=== PATIENT | female | born 1970 | race Caucasian/White ===

== ENCOUNTER 2022-03-31 10:15 | Emergency (ER) | payer SELFPAY ==
[2022-03-31] VITALS (10 sets, daily range): BP systolic 138–228; BP diastolic 93–139; PULSE 71–100; RESP 16–17; TEMP 37.1; O2SAT 96–961; BMI 30.7
--- NOTE | 2022-03-31 10:36 | EX.ED.DYSGE1 ---
HPI History of Present Illness Chief Complaint: Hypertension Informant: patient Onset/Context/Timing Onset: Yesterday Context: Gradual Onset Timing: Continuous Quality: Tingling Location: Left hand Worsened by: Nothing Relieved by: Nothing Narrative Narrative: Presents with elevated blood pressure that was found today. Patient went to urgent care to see about some numbness and tingling in her left hand that occurred yesterday. Patient states she had some tingling in her third fourth and fifth fingers of her left hand. Patient states that when she went to see the urgent care they told her that her blood pressure was too high and they would not be able to see her. Patient also admits to some visual changes where she saw some floaters in her vision yesterday. Patient states she thought this was a migraine starting. Patient admits to a mild headache but is not nearly as severe as her normal migraine headaches. Patient denies any chest pain or shortness of breath. Patient denies any other symptoms. Patient does not have a primary care physician. PFSH PFS Medical History no medical history no medical history Home Medications amlodipine 5 mg PO DAILY #30 tab 03/31/22 [Rx Last Taken Unknown] Allergy/AdvReac Type Severity Reaction Status Date / Time No Known Allergies Allergy Verified 03/31/22 10:17 Surgical History Hx of appendectomy Social History Smoking Status: Never smoker ROS ROS ED Constitutional Constitutional ED: Denies chills or fever(s) Eyes Eyes: Reports change in vision; Denies blurry vision or diplopia ENT ENT ED: Denies rhinorrhea or sore throat Cardiovascular Cardiovascular: Denies chest pain or palpitations Respiratory/Chest Respiratory/Chest: Denies cough or dyspnea Gastrointestinal Gastrointestinal: Denies nausea or vomiting Genitourinary Genitourinary ED: Denies dysuria or hematuria Musculoskeletal Musculoskeletal: Denies back pain or neck pain Integumentary Denies abscess or rash Neurologic Neurologic: Reports headache(s) and paresthesias LUE (Third, fourth, and fifth digits); Denies weakness Allergic/Immunologic Allergic/Immunologic ED: Denies mouth swelling or urticaria EXAM Physical Exam Const Vital Signs: 03/31/22 10:17 03/31/22 11:19 03/31/22 11:30 Temperature 98.8 F Temperature Source Temporal Pulse Rate 100 82 Respiratory Rate 17 16 Respiratory Effort Normal Respiratory Pattern Normal Blood Pressure 228/139 H 206/107 H 138/104 H Blood Pressure Mean 168 140 115 Pulse Ox 96 961 Oxygen Delivery Method Room Air Room Air 03/31/22 12:17 03/31/22 12:42 03/31/22 12:59 Temperature Temperature Source Pulse Rate 72 79 74 Respiratory Rate 16 16 16 Respiratory Effort Respiratory Pattern Blood Pressure 220/129 H 207/120 H 206/94 H Blood Pressure Mean 159 149 131 Pulse Ox 96 96 97 Oxygen Delivery Method Room Air Room Air 03/31/22 13:34 03/31/22 14:37 03/31/22 15:00 Temperature Temperature Source Pulse Rate 72 74 71 Respiratory Rate 16 16 Respiratory Effort Respiratory Pattern Blood Pressure 201/110 H 209/104 H 188/93 H Blood Pressure Mean 140 139 124 Pulse Ox 96 96 Oxygen Delivery Method Room Air Room Air 03/31/22 15:36 Temperature Temperature Source Pulse Rate 77 Respiratory Rate 16 Respiratory Effort Respiratory Pattern Blood Pressure 179/99 H Blood Pressure Mean 125 Pulse Ox 96 Oxygen Delivery Method Room Air Positive well nourished and well developed General Appearance ED: well developed HEENT Reports moist mucous membranes Neck supple and no JVD Resp normal respiratory effort and clear to auscultation bilaterally Cardio regular rate and regular rhythm Heart Sounds: murmur systolic II/ soft GI normal to inspection, nondistended, normoactive bowel sounds and non-tender Palpation: soft Extremity normal to inspection General Extremety ED: Negative for edema or tenderness General Extremity: Negative for edema Neuro oriented x3, CN's II-XII intact bilaterally and no sensory deficits noted Sensorium / Orientation: alert Motor Exam: strength 5/5 throughout Psych mental status grossly normal Skin no rashes or lesions noted MDM MDM MDM Narrative Medical decision making narrative: Patient was given a dose of labetalol here. EKG was obtained. On my interpretation, it showed a normal sinus rhythm with a rate of 91. NM and QRS intervals were within normal limits. QTc interval was slightly prolonged at 482 ms. Rule was normal. There are no acute ST or T wave changes. This lady CBC was within normal limits. Comprehensive metabolic profile was within normal limits. High-sensitivity troponin was normal. Urinalysis does not show any evidence of urinary tract infection or hematuria. Patient's blood pressure initially started to go down and then went back up again. Patient was given a repeat dose of labetalol. Patient's blood pressure did not improve after this. Patient was given a dose of hydralazine. Patient's blood pressure improved to 179/99 after this. Patient remained asymptomatic throughout her emergency department stay. Patient was given a prescription for amlodipine. Patient was instructed to follow-up with a primary care physician for further evaluation in 5 to 7 days. Patient was given a referral from the primary care physician project/production manager imaging list. Patient understood and was agreeable with the plan. All questions were answered. Lab Data Attestation: I reviewed the patient's lab results. Labs: Laboratory Results - last 24 hr 03/31/22 03/31/22 03/31/22 11:15 11:15 11:50 WBC 8.6 RBC 4.60 Hgb 14.5 Hct 43.5 MCV 94.6 MCH 31.5 MCHC 33.3 RDW Std Deviation 45.8 H RDW Coeff of Monet 13.1 Plt Count 297 MPV 10.0 Immature Gran % (Auto) 0.300 Neut % (Auto) 69.8 Lymph % (Auto) 23.4 Carter % (Auto) 4.4 Eos % (Auto) 1.6 Baso % (Auto) 0.5 Absolute Neuts (auto) 6.0 Absolute Lymphs (auto) 2.02 Nucleated RBC % 0 Sodium 142 Potassium 3.5 Chloride 108 H Carbon Dioxide 24.0 Anion Gap 10 BUN 10 Creatinine 0.87 Estim Creat Clear Calc 73.56 Est GFR (MDRD) Af Amer 87 Est GFR (MDRD) Non-Af 72 BUN/Creatinine Ratio 11.5 Glucose 96 Calcium 9.4 Total Bilirubin 0.70 AST 18 ALT 21 Alkaline Phosphatase 76 Troponin I High Sens 8 Total Protein 8.1 Albumin 4.2 Globulin 3.9 Albumin/Globulin Ratio 1.1 Urine Color Yellow Urine Clarity Sl. Cloudy Urine pH 6.0 Ur Specific Breeding 1.020 Urine Protein 15 H Urine Glucose (UA) Normal Urine Ketones Negative Urine Occult Blood 25 H Urine Nitrite Negative Urine Bilirubin Negative Urine Urobilinogen Normal Ur Leukocyte Esterase Negative Urine RBC 0 SEEN Urine WBC 0 SEEN Ur Squamous Epith Cells 0-5 SEEN Urine Bacteria 0 SEEN Urine Mucus 0 SEEN Radiography Chest X-Ray - ED: 1 View, Read by ED Physician, Read by Radiologist and No Acute Disease Diagnostic Testing: Clinical Impression(s) from Imaging Studies Chest X-Ray 03/31/22 11:35 IMPRESSION: No acute abnormality is seen. Electronically Signed: Cristobal Denton MD at 12:27 EDT , Discharge Plan Triage Chief Complaint: Hypertension ED Provider: Johan Pappas Dx/Rx/DC Orders Clinical Impression: Hypertension Instructions: ED Hypertension New Begin Treatment Prescriptions: New amlodipine 5 mg tablet 5 mg PO DAILY Qty: 30 RF: 0 Primary Care Provider: Care Physician,No Primary Referrals: Afshan Langston [NON-STAFF] - 5-7 Days Disposition Disposition: Home, Self Care Discharge Date/Time: 03/31/22 16:07
--- NOTE | 2022-03-31 10:43 | EKG12_ITS ---
Test Reason : HTN Blood Pressure : / mmHG Vent. Rate : 091 BPM Atrial Rate : 091 BPM P-R Int : 172 ms QRS Dur : 102 ms QT Int : 392 ms P-R-T Axes : 030 -09 029 degrees QTc Int : 482 ms Normal sinus rhythm Prolonged QT Abnormal ECG Confirmed by TANIKA ESTRADA, ANNIE ([id number]), editor farm journal BELÉN HARP ([id number]) on 04/02/2022 1:49:14 PM Referred By: ESCOBAR Confirmed By:ANNIE SAGASTUME MD
--- NOTE | 2022-03-31 10:51 | NURSING ---
NO OLD EKGS
[2022-03-31] MEDS: Labetalol (Prefilled) 20 MG/4 ML 10 MG IV ×2 (11:26→12:43)
--- NOTE | 2022-03-31 11:35 | RAD_ITS ---
STUDY: X-RAY CHEST REASON FOR EXAM: Female, 51 years old. Hypertension TECHNIQUE: Single AP portable view of the chest. COMPARISON: None. FINDINGS: The lungs are clear and expanded. There is no demonstrated pleural abnormality. Normal size heart. Normal mediastinum and gonzález. Normal visualized pulmonary arteries. There is atherosclerotic tortuosity of the aortic arch and descending thoracic aorta. Normal visualized thoracic spine. Normal visualized ribs, clavicles, and shoulders. There is no demonstrated abnormality of the visualized soft tissue structures of the upper abdomen. RAD/Chest 1 View (Portable) IMPRESSION: No acute abnormality is seen. Electronically Signed: Cristobal Denton MD at 12:27 EDT ,
[2022-03-31 11:37] LABS: Absolute Lymphocyte Count 2.02 X10^3/uL (0.83-4.51); Basophil# 0.04 X10^3/uL; Basophil% 0.5 % (0-1); Eosinophil# 0.14 X10^3/uL; Eosinophils% 1.6 % (0-5); Hematocrit 43.5 % (37-47); Hemoglobin 14.5 g/dL (12.0-15.0); Lymphocyte # 2.02 X10^3/ul (0.83-4.51); Lymphocyte % 23.4 % (19-41); Mean Corp Hgb Conc 33.3 g/dL (32-36); Mean Corpuscular Hgb 31.5 pg (27.0-32.0); Mean Corpuscular Volume 94.6 fL (81-99); Monocyte# 0.38 X10^3/uL; Monocyte% 4.4 % (0-10); NRBC Flagged by Analyzer 0 % (0-5); Neutrophil # 6.01 X10^3/uL (2.7-7.7); Neutrophil % 69.8 % (47-70); Platelet Count 297 K/mm3 (150-450); RBC Distribution Width CV 13.1 % (11.6-14.6); RBC Distribution Width SD 45.8 fl (35.1-43.9); White Blood Count 8.6 K/mm3 (4.4-11.0)
[2022-03-31 11:57] LABS: ALB/GLOB Ratio 1.1 RATIO (0.9-2.4); AST(SGOT) 18 U/L (15-37); Alanine Aminotransfer ALT/SGPT 21 U/L (13-56); Albumin, Serum 4.2 g/dL (3.2-5.0); Alkaline Phosphatase 76 U/L (45-117); Anion Gap 10 (5-15); BUN 10 mg/dL (7-18); BUN/Creat Ratio 11.5 RATIO (10-20); Calcium,Total 9.4 mg/dL (8.5-10.1); Chloride 108 mmol/L (98-107); Creatinine, Serum 0.87 mg/dL (0.55-1.02); EST Glomerular Filtration Rate 72 mL/min (>60); Est Glom Filt Rate - Afr Amer 87 mL/min (>60); Estimated Creatinine Clearance 73.56 ml/min; Globulin 3.9 g/dL (2.2-4.2); Glucose 96 mg/dL (74-106); Potassium 3.5 mmol/L (3.5-5.1); Protein, Total 8.1 g/dL (6.4-8.2); Sodium Level 142 mmol/L (136-145); Troponin-I HS 8 pg/mL (3.0-54.0)
[2022-03-31 12:01] LABS: Bacteria 0 SEEN /hpf (None Seen); Mucous, Urine 0 SEEN /hpf (<or=2+); Red Blood Cells-Urine 0 SEEN /hpf (0-5); White Blood Cells 0 SEEN /hpf (0-5)
[2022-03-31 12:03] LABS: Color, Urine Yellow (Yellow); Glucose, Dipstick Normal (Normal); Ketone-Dipstick Negative (Negative); Leukocyte Esterase-Dipstick Negative /ul (Negative); Nitrite-Dipstick Negative (Negative); Occult Blood-Urine 25 /ul (Negative); Protein-Dipstick 15 mg/dl (Negative); Urine Bilirubin Dipstick Negative (Negative); Urine Clarity Sl. Cloudy (Clear); Urine Urobilinogen Normal (Normal)
--- NOTE | 2022-03-31 12:09 | CM.ED ---
Social Work Note Reason for Referral: No PCP SW reviewed chart, No PCP and No insurance listed. SW met with pt. Pt confirms she has no PCP and no insurance. SW provided pt with list of PCP and self-pay packet. Leila Bird TRACTOR SWEEPER DRIVER, DIRECTOR OF BUSINESS APPLICATIONS
[2022-03-31 12:19] LABS: Squamous Epithelial Cells - UA 0-5 SEEN /hpf (5-10)
[2022-03-31] MEDS: hydrALAZINE 20 MG/ML Vial 5 MG IV (14:38)
== END 2022-03-31 16:07 | disposition home or self-care (01) ==
PROVIDERS: Emergency Provider Emergency Medicine; Visit Provider Emergency Medicine
DX: I10 Essential (primary) hypertension (principal)
CPT/HCPCS: 71045; 80053; 81001; 84484; 85025; 93005; 96374; 96375; 96376; 99283; A4216